=== PATIENT | female | born 1985 | race Caucasian/White ===

== ENCOUNTER 2016-12-23 13:22 | Emergency (ER) | END 2016-12-23 15:03 | disposition home or self-care (01) | DX: F15.10 Other stimulant abuse, uncomplicated (principal); F17.210 Nicotine dependence, cigarettes, uncomplicated | CPT/HCPCS: 82962; 93005; Z7502 ==

== ENCOUNTER 2017-06-10 14:45 | Emergency (ER) | payer OTHER ==
[~2017-06-10] VITALS: Ht 157.5 cm; Wt 74.0 kg
[~2017-06-10 14:45] MED LIST: ELIM TOP
[2017-06-10 14:48] VITALS: Ht 157.5 cm; Wt 74.0 kg
[2017-06-10] MEDS ORDERED: MECLIZINE 12.5 MG TAB PO ONE (15:00)
[2017-06-10] MEDS ORDERED: ONDANSETRON (ODT) 4 MG TAB ODT STA (15:00)
--- NOTE | 2017-06-10 15:05 | ERD ---
ER Documentation Chief Complaint Date/Time DATE: 06/10/17 TIME: 15:01 Chief Complaint dizziness x 3 days with nausea HPI Patient is a 31-year-old otherwise healthy female who states she has had dizziness for the past 3 days. She describes the dizziness as feeling like the room is spinning and she states it feels worse when she goes from sitting to standing or when she moves her head. She admits to nausea but no vomiting. Denies any fever. Denies any headache. Denies any visual changes. She has not tried any medications for this. Her last menstrual period was last month she states. She denies any chest pain or shortness of breath. ROS All systems reviewed and are negative except as per history of present illness. Medications Home Meds Active Scripts Ondansetron (Ondansetron Odt) 4 Mg Tab.rapdis, 4 MG PO Q6H Y for NAUSEA AND/OR VOMITING, #20 TAB Prov:ABRAHAM DOSHI PA-C 06/10/17 Meclizine Hcl* (Meclizine Hcl*) 25 Mg Tablet, 25 MG PO Q8H Y for DIZZINESS, #30 TAB Prov:ABRAHAM DOSHI PA-C 06/10/17 Permethrin* (Elimite*) 5% Cr, 1 APPLIC TOP ONCE, #60 TUB Prov:ABRAHAM DOSHI PA-C 08/15/15 Allergies Allergies: Coded Allergies: No Known Allergy (Unverified , 06/07/15) PMhx/Soc History of Surgery: No Anesthesia Reaction: No Hx Neurological Disorder: No Hx Respiratory Disorders: No Hx Cardiac Disorders: No Hx Psychiatric Problems: No Hx Miscellaneous Medical Probl: No Hx Alcohol Use: Yes (OCCASIONALLY) Hx Substance Use: No (MARIJUANA) Hx Tobacco Use: Yes FmHx Family History: No diabetes Physical Exam Vitals Vital Signs Date Time Temp Pulse Resp B/P Pulse Ox O2 Delivery O2 Flow Rate FiO2 06/10/17 14:48 97.9 85 18 117/72 98 Physical Exam General: well developed, well nourished, alert, nontoxic, no distress Head: normocephalic, atraumatic Eyes: PERRL, normal conjunctiva Neck: Supple, nontender, no lymphadenopathy, no midline tenderness Respiratory: Clear to auscaultation bilaterally, speaks in full sentences, no use of accesory muscles or labored breathing, no rales, ronchi, or wheezing Cardiovascular: RRR, No murmurs GI: soft, non tender, non distended, negative murphys sign, negative mcburneys point tenderness, no cva tenderness bilaterally, no rebound or guarding Neuro: CN 2-12 intact, normal speech, sales exhibitor strength 5/5 bilaterally, rapid alternating movements wnl, romberg and pronator drift wnl Results 24 hrs Laboratory Tests Test 06/10/17 15:05 Bedside Glucose 94mg/dL Current Medications Medications (Trade) Dose Ordered Sig/Bartolo Route PRN Reason Start Time Stop Time Status Last Admin Dose Admin Meclizine HCl (Antivert) 25 mg ONCE ONCE PO 06/10/17 15:00 06/10/17 15:01 DC 06/10/17 15:05 Ondansetron HCl (Zofran Odt) 4 mg ONCE STAT ODT 06/10/17 15:00 06/10/17 15:01 DC 06/10/17 15:05 Procedures/MDM This is a 31-year-old female who has had dizziness for the past 3 days. She is otherwise healthy without any medical problems. She is well-appearing in no distress and her neurological examination is normal. She has no chest pain or shortness of breath. She has no headache. Her symptoms are described as feeling like the room is spinning and worse when she changes positions of her head. This is most likely benign positional vertigo however I did do an Accu- Chek and a urine test. Accu-Chek was within normal limits and her test is negative. She was given Zofran and meclizine here in the emergency room and discharged with prescriptions for both as well. Recommended this patient follow up with her primary care doctor within 48 hours or return to the emergency room for any worsening of symptoms. However this time I do believe there is suitable for outpatient management. I answered all their questions and they agreed with the plan and were discharged home. Departure Diagnosis: Primary Impression: Benign positional vertigo Condition: Stable ABRAHAM DOSHI PA-C Jun 10, 2017 15:04
[2017-06-10] MEDS ORDERED: ONDA4TAB14 PO (15:06)
[2017-06-10] MEDS ORDERED: MECL-77 PO (15:06)
[2017-06-10 16:57] VITALS: BP 121/78; PULSE 61; RESP 20; TEMP 98
== END 2017-06-10 16:58 | disposition home or self-care (01) ==
LOC: MERGE 14:45 → FTE 14:45
DX: H81.10 Benign paroxysmal vertigo, unspecified ear (principal); R11.0 Nausea; Z87.891 Personal history of nicotine dependence
CPT/HCPCS: 82962; Z7502; Z7610; 99283

== ENCOUNTER 2017-07-15 22:52 | Emergency (ER) | END 2017-07-15 23:17 | disposition left against medical advice (07) | DX: Z53.21 Procedure and treatment not carried out due to patient leaving prior to being seen by health care provider (principal) ==

== ENCOUNTER 2017-08-21 12:47 | Emergency (ER) | payer OTHER ==
[~2017-08-21] VITALS: Wt 78.0 kg
[~2017-08-21 12:47] MED LIST changes: +MECL-77 PO; +ONDA4TAB14 PO
[2017-08-21] MEDS ORDERED: LIDOCAINE 1% (MDV) 20 ML INJ SC ONE (14:00)
[2017-08-21] MEDS ORDERED: CEPH-443 PO (14:19)
[2017-08-21] MEDS ORDERED: SULF1TAB31 PO (14:19)
[2017-08-21] MEDS ORDERED: IBUP-1542 PO (14:19)
--- NOTE | 2017-08-21 14:46 | ERD ---
ER Documentation Chief Complaint Date/Time DATE: 08/21/17 TIME: 14:45 Chief Complaint UPPER LEFT ARM ABSCESS HPI 31-year-old female comes in with left axillary abscess that started approximately 5 days ago. She describes localized pain that is sharp, achy. She denies fevers or chills. ROS All systems reviewed and are negative except as per history of present illness. Medications Home Meds Active Scripts Ibuprofen* (Motrin*) 600 Mg Tab, 600 MG PO Q6, #30 TAB Prov:BOBBY GARZA PA-C 08/21/17 Sulfamethoxazole/Trimethoprim* (Bactrim Ds* Tablet) 1 Each Tablet, 1 TAB PO BID , #10 TAB Prov:BOBBY GARZA PA-C 08/21/17 Cephalexin* (Keflex*) 500 Mg Capsule, 500 MG PO QID for 5 Days, CAP Prov:BOBBY GARZA PA-C 08/21/17 Ondansetron (Ondansetron Odt) 4 Mg Tab.rapdis, 4 MG PO Q6H Y for NAUSEA AND/OR VOMITING, #20 TAB Prov:ABRAHAM DOSHI PA-C 06/10/17 Meclizine Hcl* (Meclizine Hcl*) 25 Mg Tablet, 25 MG PO Q8H Y for DIZZINESS, #30 TAB Prov:ABRAHAM DOSHI PA-C 06/10/17 Permethrin* (Elimite*) 5% Cr, 1 APPLIC TOP ONCE, #60 TUB Prov:ABRAHAM DOSHI PA-C 08/15/15 Allergies Allergies: Coded Allergies: No Known Allergy (Unverified , 12/23/16) PMhx/Soc Medical and Surgical Hx: pt denies Medical Hx, pt denies Surgical Hx History of Surgery: No Anesthesia Reaction: No Hx Neurological Disorder: No Hx Respiratory Disorders: No Hx Cardiac Disorders: No Hx Psychiatric Problems: No Hx Miscellaneous Medical Probl: No Hx Alcohol Use: Yes (OCCASIONALLY) Hx Substance Use: No (MARIJUANA) Hx Tobacco Use: Yes Smoking Status: Current every day smoker Physical Exam Vitals Vital Signs Date Time Temp Pulse Resp B/P Pulse Ox O2 Delivery O2 Flow Rate FiO2 08/21/17 12:53 98.0 78 18 126/71 99 Physical Exam General: Well-developed, well-nourished. The patient appears in no acute distress. HEENT: Head is normocephalic, atraumatic. No scleral icterus. Neck: Supple. Nontender. Lungs: Clear to auscultation. Normal air movement. Heart: Regular rate and rhythm. S1 and S2 are normal. No murmurs, gallops, or rubs. Abdomen: Nondistended. Extremities: No clubbing or cyanosis. Moving extremities x 4. No weakness. Neurologic: Alert and oriented 3. No focal deficits. Normal speech and gait. Skin: 2 cm area of fluctuance in the left axilla, there is fluctuance. No lymphatic Streaking. Results 24 hrs Current Medications Medications (Trade) Dose Ordered Sig/Bartolo Route PRN Reason Start Time Stop Time Status Last Admin Dose Admin Lidocaine (Xylocaine 1% (Mdv) 20 ml) 20 ml ONCE ONCE SC 08/21/17 14:00 08/21/17 14:01 DC Procedures/MDM Abscess Incision and Drainage with irrigation by me: Patient was verbally consented Location: left axilla Anesthesia: Local 1% Lidocaine Technique: Irrigated. Disrupted loculations w/ instrumentation Packing: None Complications: Neurovascularly intact post procedure 48 hour wound check. Scar minimization instructions given. Patient's skin symptoms have stabilized while they have been evaluated in the department and are appropriate for outpatient care and work up. Exam and w/u not consistent w/ sepsis, deep space infection, or foreign body. Departure Diagnosis: Primary Impression: Encounter for incision and drainage procedure Additional Impression: Abscess Condition: Good Patient Instructions: Abscess, Incision And Drainage BOBBY GARZA PA-C Aug 21, 2017 14:46
== END 2017-08-21 14:27 | disposition home or self-care (01) ==
LOC: FTE 12:47
DX: L02.412 Cutaneous abscess of left axilla (principal); F17.210 Nicotine dependence, cigarettes, uncomplicated
CPT/HCPCS: 10060; Z7502; Z7610

== ENCOUNTER 2017-08-27 19:00 | Emergency (ER) | payer SELFPAY ==
[~2017-08-27] VITALS: Ht 157.5 cm; Wt 61.5 kg
[~2017-08-27 19:00] MED LIST changes: +CEPH-443 PO; +IBUP-1542 PO; +SULF1TAB31 PO
[2017-08-27 19:08] VITALS: Ht 157.5 cm; Wt 61.5 kg
== END 2017-08-27 22:29 | disposition left against medical advice (07) ==
LOC: E/R 19:00
DX: Z53.21 Procedure and treatment not carried out due to patient leaving prior to being seen by health care provider (principal)

== ENCOUNTER 2017-08-30 04:14 | Emergency (ER) | payer OTHER ==
[~2017-08-30] VITALS: Ht 160 cm; Wt 60.5 kg
[2017-08-30 04:22] VITALS: Ht 160 cm; Wt 60.5 kg
[2017-08-30] MEDS ORDERED: FER325 PO (04:45)
--- NOTE | 2017-08-30 04:48 | ERD ---
ER Documentation Chief Complaint Date/Time DATE: 08/30/17 TIME: 04:47 Chief Complaint Wants refill of iron pills. HPI 31-year-old female presents here to emergency department for refill of her iron pills. Patient has been diagnosed with chronic anemia, run out of her medication the last 2 days. Patient denies bleeding symptoms at this time. Patient denies any complaints. Patient wants resources for community clinics and will be given to her. Patient denies any other symptoms. ROS All systems reviewed and are negative except as per history of present illness. Medications Home Meds Active Scripts Ferrous Sulfate* (Ferrous Sulfate*) 325 Mg Tabec, 325 MG PO BID, #20 TAB Prov:DERRELL LARKIN NP 08/30/17 Ibuprofen* (Motrin*) 600 Mg Tab, 600 MG PO Q6, #30 TAB Prov:BOBBY GARZA PA-C 08/21/17 Sulfamethoxazole/Trimethoprim* (Bactrim Ds* Tablet) 1 Each Tablet, 1 TAB PO BID , #10 TAB Prov:BOBBY GARZA PA-C 08/21/17 Cephalexin* (Keflex*) 500 Mg Capsule, 500 MG PO QID for 5 Days, CAP Prov:BOBBY GARZA PA-C 08/21/17 Ondansetron (Ondansetron Odt) 4 Mg Tab.rapdis, 4 MG PO Q6H Y for NAUSEA AND/OR VOMITING, #20 TAB Prov:ABRAHAM DOSHI PA-C 06/10/17 Meclizine Hcl* (Meclizine Hcl*) 25 Mg Tablet, 25 MG PO Q8H Y for DIZZINESS, #30 TAB Prov:ABRAHAM DOSHI PA-C 06/10/17 Permethrin* (Elimite*) 5% Cr, 1 APPLIC TOP ONCE, #60 TUB Prov:ABRAHAM DOSHI PA-C 08/15/15 Allergies Allergies: Coded Allergies: No Known Allergy (Unverified , 12/23/16) PMhx/Soc History of Surgery: No Anesthesia Reaction: No Hx Neurological Disorder: No Hx Respiratory Disorders: No Hx Cardiac Disorders: No Hx Psychiatric Problems: No Hx Miscellaneous Medical Probl: No Hx Alcohol Use: Yes (OCCASIONALLY) Hx Substance Use: No (MARIJUANA) Hx Tobacco Use: Yes FmHx Family History: No coronary disease, No diabetes, No other Physical Exam Vitals Vital Signs Date Time Temp Pulse Resp B/P Pulse Ox O2 Delivery O2 Flow Rate FiO2 08/30/17 04:22 97.2 97 20 137/90 100 Physical Exam GENERAL: The patient is well developed and appropriate for usual state of health, in no apparent distress. CHEST: Clear to auscultation bilaterally. There are no rales, wheezes or rhonchi. HEART: Regular rate and rhythm. No murmurs, clicks, rubs or gallops. No S3 or S4. ABDOMEN: Soft, nontender and nondistended. Good bowel sounds. No rebound or guarding. No gross peritonitis. No gross organomegaly or masses. No Evans sign or McBurney point tenderness. BACK: No midline or flank tenderness. EXTREMITIES: Equal pulses bilaterally. There is no peripheral clubbing, cyanosis or edema. No focal swelling or erythema. Full range of motion. Grossly neurovascularly intact. NEURO: Alert and oriented. Cranial nerves 2-12 intact. Motor strength in all 4 extremities with 5/5 strength. Sensation grossly intact. Normal speech and gait. SKIN: There is no apparent rash or petechia. The skin is warm and dry. HEMATOLOGIC AND LYMPHATIC: There is no evidence of excessive bruising or lymphedema. No gross cervical, axillary, or inguinal lymphadenopathy. Procedures/MDM Medical decision making: Patient was given a refill of her iron pills. No symptoms of any hemodynamic instability at this time, patient's vital signs are stable, not currently bleeding, no symptoms of any coagulability. Patient was given a refill of her iron pills, was given resources for [facility] for establishing primary care. Patient was advised to return to emergency department for any worsening symptoms. Disposition: Home. Stable. Departure Diagnosis: Primary Impression: Encounter for medication refill Condition: Stable Patient Instructions: Taking Medicine Safely Referrals: COMMUNITY CLINICS YOU HAVE RECEIVED A MEDICAL SCREENING EXAM AND THE RESULTS INDICATE THAT YOU DO NOT HAVE A CONDITION THAT REQUIRES URGENT TREATMENT IN THE EMERGENCY DEPARTMENT. FURTHER EVALUATION AND TREATMENT OF YOUR CONDITION CAN WAIT UNTIL YOU ARE SEEN IN YOUR DOCTORS OFFICE WITHIN THE NEXT 1-2 DAYS. IT IS YOUR RESPONSIBILITY TO MAKE AN APPOINTMENT FOR FOLOW-UP CARE. IF YOU HAVE A PRIMARY DOCTOR --you should call your primary doctor and schedule an appointment IF YOU DO NOT HAVE A PRIMARY DOCTOR YOU CAN CALL OUR PHYSICIAN REFERRAL HOTLINE AT IF YOU CAN NOT AFFORD TO SEE A PHYSICIAN YOU CAN CHOSE FROM THE FOLLOWING [facility] CLINICS [facility] [address] [place] [facility] [address] [place] [facility] [address] [facility] [address] [facility] [address] [facility]. [address] [facility]. [facility] YOU HAVE RECEIVED A MEDICAL SCREENING EXAM AND THE RESULTS INDICATE THAT YOU DO NOT HAVE A CONDITION THAT REQUIRES URGENT TREATMENT IN THE EMERGENCY DEPARTMENT. FURTHER EVALUATION AND TREATMENT OF YOUR CONDITION CAN WAIT UNTIL YOU ARE SEEN IN YOUR DOCTORS OFFICE WITHIN THE NEXT 1-2 DAYS. IT IS YOUR RESPONSIBILITY TO MAKE AN APPOINTMENT FOR FOLOW-UP CARE. IF YOU HAVE A PRIMARY DOCTOR --you should call your primary doctor and schedule and appointment IF YOU DO NOT HAVE A PRIMARY DOCTOR YOU CAN CALL OUR PHYSICIAN REFERRAL HOTLINE AT . IF YOU CAN NOT AFFORD TO SEE A PHYSICIAN YOU CAN CHOSE FROM THE FOLLOWING [facility] INSTITUTIONS: [facility] [address] [place] [address] [facility] [address] [place] [address] [facility] [address] [place] [address] [facility] DERRELL LARKIN NP Aug 30, 2017 04:48
== END 2017-08-30 05:05 | disposition home or self-care (01) ==
LOC: FTE 04:14
DX: Z76.0 Encounter for issue of repeat prescription (principal); Z87.891 Personal history of nicotine dependence
CPT/HCPCS: 99281

== ENCOUNTER 2017-11-15 10:49 | Emergency (ER) | payer OTHER ==
[~2017-11-15] VITALS: Ht 157.5 cm; Wt 60.1 kg
[~2017-11-15 10:49] MED LIST changes: +FER325 PO
[2017-11-15 10:55] VITALS: Ht 157.5 cm; Wt 60.1 kg
[2017-11-15] MEDS ORDERED: FLUT9.9S NASAL (12:18)
--- NOTE | 2017-11-15 15:03 | ERD ---
ER Documentation Chief Complaint Chief Complaint ringing in both ears, recent d/c from psych facility, denies si/hi HPI 31-year-old female is complaining of tinnitus in bilateral ears 1.5 months. Patient stated that he had a gradual onset. The intensity the tinnitus has increased gradually over time. She now can no longer ignore it. Patient reports history of depression. She was just released from psychiatric hospital a week ago. She reports hearing voices, but the voices are telling her good things. Denies suicidal or homicidal ideations. She has a follow-up appointment with either her PCP or psychiatrist tomorrow. Patient does not remember which. Patient also has history of vertigo, taking meclizine occasionally. Patient reports frequent and regular crystal meth and marijuana use. Denies fever or chills. Denies vertigo currently. ROS All systems reviewed and are negative except as per history of present illness. Medications Home Meds Active Scripts Fluticasone Propionate (Flonase Allergy Relief) 9.9 Ml [place].susp, 1 SPRAY NASAL DAILY, #1 BOTTLE TO EACH NOSTRIL Prov:JOSE JUAN BANERJEE COTTON TIPPER 11/15/17 Ferrous Sulfate* (Ferrous Sulfate*) 325 Mg Tabec, 325 MG PO BID, #20 TAB Prov:DERRELL LARKIN COTTON TIPPER 08/30/17 Ibuprofen* (Motrin*) 600 Mg Tab, 600 MG PO Q6, #30 TAB Prov:BOBBY GARZA PA-C 08/21/17 Sulfamethoxazole/Trimethoprim* (Bactrim Ds* Tablet) 1 Each Tablet, 1 TAB PO BID , #10 TAB Prov:BOBBY GARZA PA-C 08/21/17 Cephalexin* (Keflex*) 500 Mg Capsule, 500 MG PO QID for 5 Days, CAP Prov:BOBBY GARZA PA-C 08/21/17 Ondansetron (Ondansetron Odt) 4 Mg Tab.rapdis, 4 MG PO Q6H Y for NAUSEA AND/OR VOMITING, #20 TAB Prov:ABRAHAM DOSHI PA-C 06/10/17 Meclizine Hcl* (Meclizine Hcl*) 25 Mg Tablet, 25 MG PO Q8H Y for DIZZINESS, #30 TAB Prov:ABRAHAM DOSHI PA-C 06/10/17 Permethrin* (Elimite*) 5% Cr, 1 APPLIC TOP ONCE, #60 TUB Prov:ABRAHAM DOSHI KADEN 08/15/15 Allergies Allergies: Coded Allergies: No Known Allergy (Unverified , 12/23/16) PMhx/Soc History of Surgery: No Anesthesia Reaction: No Hx Neurological Disorder: No Hx Respiratory Disorders: No Hx Cardiac Disorders: No Hx Psychiatric Problems: No Hx Miscellaneous Medical Probl: Yes (Anemia) Hx Alcohol Use: Yes (OCCASIONALLY) Hx Substance Use: Yes (MARIJUANA, meth qod) Hx Tobacco Use: Yes Smoking Status: Current every day smoker Physical Exam Vitals Vital Signs Date Time Temp Pulse Resp B/P Pulse Ox O2 Delivery O2 Flow Rate FiO2 11/15/17 10:55 97.9 122 18 140/106 97 Physical Exam General: Well-developed, well-nourished, conscious and coherent, in no distress Skin: Warm and dry without rash, good texture and turgor Head: Normocephalic without evidence of trauma Eyes: Sclera and conjunctivae normal; pupils equal, round, and reactive to light; extraocular movements are intact Ears: Canals are patent. Tympanic membranes are clear. Serous effusion noted behind left TM. Nose/Face: Boggy and swollen Mouth/throat: Mucous membranes are moist. Posterior pharynx clear without erythema or exudates Neck: Supple without meningismus or adenopathy. Carotids are equal. Trachea midline. No bruits or JVD Chest: Normal AP diameter. Good expansion without retractions. Nontender. Lungs are clear to auscultate bilaterally with good tidal volume Heart: Regular rate and rhythm. No murmur, rub, or gallops heard Extremities: Full range of motion. Good strength bilaterally. No clubbing, cyanosis, or edema. Peripheral pulses are intact. Sensation intact Neuro: Alert and oriented 4, GCS 15. Cranial nerves grossly intact. Motor and sensory exams nonfocal. Moves all extremities. Speech clear. Gait normal Psych: Flight of ideas, pressured speech. Normal mood. Avoid eye contact. Procedures/MDM 31-year-old female complaining of tinnitus. Patient noted to have serous otitis media on exam, likely secondary to allergic rhinitis. The serous otitis media may be causing her tinnitus. However, given patient's history of vertigo , Mnire's disease is also a possibility, as is hearing loss. Patient has history of depression, and auditory hallucination. She denies any suicidal homicidal ideations. I do not feel psychiatric hold is indicated. She has a follow-up appointment with either her PCP or psychiatrist tomorrow. Patient appears well, stable for discharge and outpatient management. Medical decision making shared with patient and family. Education provided to patient and family. Patient and family expressed understanding of the plan. Medications on discharge: Saline nasal spray, Flonase. Follow-up: Primary care provider in 2-3 days or return to ED if worse. Disclaimer: Inadvertent spelling and grammatical errors are likely due to EHR/ dictation software use and do not reflect on the overall quality of patient care. Also, please note that the electronic time recorded on this note does not necessarily reflect the actual time of the patient encounter. Departure Diagnosis: Primary Impression: Tinnitus Additional Impressions: Multiple substance abuse Acute allergic serous otitis media Allergic rhinitis Condition: Stable Patient Instructions: Understanding Methamphetamine Abuse and Addiction, Tinnitus (Ringing in the Ears), Allergic Rhinitis Additional Instructions: FOLLOW UP WITH YOUR PRIMARY CARE PHYSICIAN TOMORROW.Return to this facility if you are not improving as expected. JOSE JUAN BANERJEE NP Nov 15, 2017 15:03
== END 2017-11-15 13:34 | disposition home or self-care (01) ==
LOC: FTE 10:49
DX: H93.13 Tinnitus, bilateral (principal); H65.112 Acute and subacute allergic otitis media (mucoid) (sanguinous) (serous), left ear; J30.9 Allergic rhinitis, unspecified; F12.10 Cannabis abuse, uncomplicated; F15.10 Other stimulant abuse, uncomplicated; F17.210 Nicotine dependence, cigarettes, uncomplicated
CPT/HCPCS: 99283

== ENCOUNTER 2017-11-26 08:22 | Emergency (ER) | payer OTHER ==
[~2017-11-26] VITALS: Ht 165.1 cm; Wt 59.1 kg
[~2017-11-26 08:22] MED LIST changes: +FLUT9.9S NASAL
[2017-11-26 08:32] VITALS: Ht 165.1 cm; Wt 59.1 kg
--- NOTE | 2017-11-26 08:51 | ERD ---
ER Documentation Chief Complaint Chief Complaint FLU LIKE SX W/ FATIGUE SINCE YESTERDAY. HPI This is a 31-year-old female presenting to the emergency department complaining of fatigue and as of her chest is concave being in since yesterday that she did crystal meth. Patient is very drowsy since yesterday. She denies any fevers, shortness of breath, headache, radiation and pain. She does admit to other drug use including cannabis ROS All systems reviewed and are negative except as per history of present illness. Medications Home Meds Active Scripts Fluticasone Propionate (Flonase Allergy Relief) 9.9 Ml [place].susp, 1 SPRAY NASAL DAILY, #1 BOTTLE TO EACH NOSTRIL Prov:JOSE JUAN BANERJEE HOME AGENT 11/15/17 Ferrous Sulfate* (Ferrous Sulfate*) 325 Mg Tabec, 325 MG PO BID, #20 TAB Prov:DERRELL LARKIN HOME AGENT 08/30/17 Ibuprofen* (Motrin*) 600 Mg Tab, 600 MG PO Q6, #30 TAB Prov:BOBBY GARZA PA-C 08/21/17 Sulfamethoxazole/Trimethoprim* (Bactrim Ds* Tablet) 1 Each Tablet, 1 TAB PO BID , #10 TAB Prov:BOBBY GARZA PA-C 08/21/17 Cephalexin* (Keflex*) 500 Mg Capsule, 500 MG PO QID for 5 Days, CAP Prov:BOBBY GARZA PA-C 08/21/17 Ondansetron (Ondansetron Odt) 4 Mg Tab.rapdis, 4 MG PO Q6H Y for NAUSEA AND/OR VOMITING, #20 TAB Prov:ABRAHAM DOSHI PA-C 06/10/17 Meclizine Hcl* (Meclizine Hcl*) 25 Mg Tablet, 25 MG PO Q8H Y for DIZZINESS, #30 TAB Prov:ABRAHAM DOSHI PA-C 06/10/17 Permethrin* (Elimite*) 5% Cr, 1 APPLIC TOP ONCE, #60 TUB Prov:ABRAHAM DOSHI PA-C 08/15/15 Allergies Allergies: Coded Allergies: No Known Allergy (Unverified , 12/23/16) PMhx/Soc History of Surgery: No Anesthesia Reaction: No Hx Neurological Disorder: No Hx Respiratory Disorders: No Hx Cardiac Disorders: No Hx Psychiatric Problems: No Hx Miscellaneous Medical Probl: Yes (Anemia) Hx Alcohol Use: Yes (OCCASIONALLY) Hx Substance Use: Yes (MARIJUANA, meth qod) Hx Tobacco Use: Yes Physical Exam Vitals Vital Signs Date Time Temp Pulse Resp B/P Pulse Ox O2 Delivery O2 Flow Rate FiO2 11/26/17 10:29 97.1 84 16 102/65 100 Room Air 11/26/17 08:32 98.4 80 16 104/66 100 Physical Exam Const: Well-developed well-nourished. Patient is sleepy Head: Atraumatic Eyes: Normal Conjunctiva ENT: Normal External Ears, Nose and Mouth. Neck: Full range of motion..~ No meningismus. Resp: Clear to auscultation bilaterally Cardio: Regular rate and rhythm, no murmurs Abd: Soft, non tender, non distended. Normal bowel sounds Skin: No petechiae or rashes Back: No midline or flank tenderness Ext: No cyanosis, or edema Neur: Arousable Psych: f drowsy Results 24 hrs Laboratory Tests Test 11/26/17 09:15 Troponin I < 0.012ng/ml Procedures/MDM This is a 31-year-old female presenting to the emergency department complaining of fatigue and chest discomfort status post doing crystal meth yesterday. I have a low suspicion for ACS other acute cardiopulmonary conditions. Patient's symptoms are contributed to doing crystal meth yesterday. She did not show STEMI. Chest x-ray did not show any infiltrates pneumothorax pleural effusion. Troponin negative. Patient appeared to still be drowsy at discharge, likely due to crashing from meth, therefore she was sent to ER 1 for observation until stable to be discharged home. Drug tox pending EKG: read and signed off by myself and dr Deshpande Rate/Rhythm: Normal Sinus Rhythm 71bpm QRS, ST, T-waves: No changes consistent w/ acute ischemia Impression: No evidence of ischemia or arrhythmia Departure Diagnosis: Primary Impression: Drug use Additional Impression: Chest pain Condition: Stable ISABELA DALEY PA-C Nov 26, 2017 08:51 ISABELA DALEY PA-C Nov 26, 2017 08:51
--- NOTE | 2017-11-26 09:36 | RADRPT ---
PROCEDURE: XR Chest. CLINICAL INDICATION: Flu-like symptoms TECHNIQUE: Single portable view of the chest was obtained COMPARISON: No priors for comparison FINDINGS: The trachea is midline. The cardiac silhouette and pulmonary vascularity are within normal limits. T he lungs are clear. The costophrenic angles are sharp. IMPRESSION: 1. No evidence of acute cardiopulmonary disease. RPTAT: AAPP Physician Eduin Date Time Electronically viewed and signed by Nishant Cedeno Physician on 11/26/2017 09:36 ZEESHAN/
[2017-11-26 11:21] LABS: BASOPHILS % 0.5 % (0.0-2.0); EOSINOPHILS # 0.1 10^3/ul (0.0-0.5); EOSINOPHILS % 0.7 % (0.0-7.0); HEMATOCRIT 37.7 % (37.0-47.0); LYMPHOCYTES # 1.2 10^3/ul (0.8-2.9); LYMPHOCYTES % 14.1 % (15.0-51.0); MEAN CORPUSCULAR HGB CONC 34.5 g/dl (32.0-37.0); MEAN PLATELET VOLUME 9.6 fl (7.4-10.4); MONOCYTE # 0.5 10^3/ul (0.3-0.9); MONOCYTES % 5.7 % (0.0-11.0); NEUTROPHIL # 6.6 10^3/ul (1.6-7.5); NEUTROPHILS % 78.4 % (39.0-77.0); PLATELET COUNT 338 10^3/UL (140-415); RED BLOOD COUNT 4.19 10^6/ul (4.20-5.40); RED CELL DISTRIBUTION WIDTH 13.4 % (11.5-14.5); WHITE BLOOD COUNT 8.4 10^3/ul (4.8-10.8)
[2017-11-26 11:43] LABS: ALANINE AMINOTRANSFERASE 32 IU/L (13-69); ALBUMIN 4.5 g/dl (3.3-4.9); ALKALINE PHOSPHATASE 79 IU/L (42-121); ANION GAP 13 (8-16); ASPARTATE AMINO TRANSFERASE 20 IU/L (15-46); BILIRUBIN,INDIRECT 0.5 mg/dl (0-1.1); BILIRUBIN,TOTAL 0.5 mg/dl (0.2-1.3); BLOOD UREA NITROGEN 21 mg/dl (7-20); CALCIUM 9.4 mg/dl (8.4-10.2); CARBON DIOXIDE 26 mmol/L (21-31); CHLORIDE 102 mmol/L (97-110); CREATININE 0.78 mg/dl (0.44-1.00); GLUCOSE 100 mg/dl (70-220); POTASSIUM 4.1 mmol/L (3.5-5.1); SODIUM 137 mmol/L (135-144); TOTAL PROTEIN 7.7 g/dl (6.1-8.1)
[2017-11-26 11:45] LABS: ACETAMINOPHEN < 10.0 ug/ml (10.0-30.0)
[2017-11-26 11:46] LABS: ETHANOL < 10.0 mg/dl; SALICYLATE < 1.0 mg/dl (5.0-30.0)
--- NOTE | 2017-11-26 11:52 | ERD ---
ER Documentation Chief Complaint Chief Complaint FLU LIKE SX W/ FATIGUE SINCE YESTERDAY. HPI This is a 31-year-old female who presents to the emergency room for evaluation of anxiety and fatigue. The patient states that she did use methamphetamine last night. She states that she felt a lynn and got nervous. The patient came to the ER for evaluation and was originally seen in fast track area and was transferred reported to the main emergency room for further evaluation. She denies homicidal ideation, denies any suicidal ideation. ROS All systems reviewed and are negative except as per history of present illness. Medications Home Meds Active Scripts Fluticasone Propionate (Flonase Allergy Relief) 9.9 Ml [place].susp, 1 SPRAY NASAL DAILY, #1 BOTTLE TO EACH NOSTRIL Prov:JOSE JUAN BANERJEE REED PRESS FEEDER 11/15/17 Ferrous Sulfate* (Ferrous Sulfate*) 325 Mg Tabec, 325 MG PO BID, #20 TAB Prov:DERRELL LARKIN REED PRESS FEEDER 08/30/17 Ibuprofen* (Motrin*) 600 Mg Tab, 600 MG PO Q6, #30 TAB Prov:BOBBY GARZA PA-C 08/21/17 Sulfamethoxazole/Trimethoprim* (Bactrim Ds* Tablet) 1 Each Tablet, 1 TAB PO BID , #10 TAB Prov:BOBBY GARZA PA-C 08/21/17 Cephalexin* (Keflex*) 500 Mg Capsule, 500 MG PO QID for 5 Days, CAP Prov:BOBBY GARZA PA-C 08/21/17 Ondansetron (Ondansetron Odt) 4 Mg Tab.rapdis, 4 MG PO Q6H Y for NAUSEA AND/OR VOMITING, #20 TAB Prov:ABRAHAM DOSHI PA-C 06/10/17 Meclizine Hcl* (Meclizine Hcl*) 25 Mg Tablet, 25 MG PO Q8H Y for DIZZINESS, #30 TAB Prov:ABRAHAM DOSHI PA-C 06/10/17 Permethrin* (Elimite*) 5% Cr, 1 APPLIC TOP ONCE, #60 TUB Prov:ABRAHAM DOSHI PA-C 08/15/15 Allergies Allergies: Coded Allergies: No Known Allergy (Unverified , 12/23/16) PMhx/Soc History of Surgery: No Anesthesia Reaction: No Hx Neurological Disorder: No Hx Respiratory Disorders: No Hx Cardiac Disorders: No Hx Psychiatric Problems: No Hx Miscellaneous Medical Probl: Yes (Anemia, DEPRESSION) Hx Alcohol Use: Yes (OCCASIONALLY) Hx Substance Use: Yes (MARIJUANA, meth ) Hx Tobacco Use: Yes Smoking Status: Light tobacco smoker Physical Exam Vitals Vital Signs Date Time Temp Pulse Resp B/P Pulse Ox O2 Delivery O2 Flow Rate FiO2 11/26/17 10:29 97.1 84 16 102/65 100 Room Air 11/26/17 08:32 98.4 80 16 104/66 100 Physical Exam INITIAL VITAL SIGNS: Reviewed by me GENERAL: The patient is well developed and appropriate for usual state of health in no apparent distress HEENT: Dry mucous membranes, pupils equal, round, and reactive to light. EOMI. There is no scleral icterus. NECK: C-spine is soft and supple, there is no meningismus. There is no cervical lymphadenopathy. LUNGS: Clear to auscultation bilaterally. There are no rales, wheezes or rhonchi. HEART: Regular rate and rhythm, no murmurs, clicks, rubs or gallops. ABDOMEN: Soft, non-tender, non-distended. There are bowel sounds in all four quadrants. No rebound or guarding. EXTREMITIES: There is no peripheral cyanosis or edema. No focal swelling or erythema. NEUROLOGICAL: The patient moves all four extremities with 5/5 strength. Cranial nerves II - XII are intact. Normal gait. Alert and oriented SKIN: There is no apparent rash or petechiae. HEME/LYMPHATIC: There is no evidence of excessive bruising or lymphedema. PSYCHIATRIC: The patient does do to be slightly anxious Result Diagram: 11/26/17 1100 11/26/17 1100 Results 24 hrs Laboratory Tests Test 11/26/17 09:15 11/26/17 11:00 Troponin I < 0.012ng/ml White Blood Count 8.410^3/ul Red Blood Count 4.1910^6/ul Hemoglobin 13.0g/dl Hematocrit 37.7% Mean Corpuscular Volume 90.0fl Mean Corpuscular Hemoglobin 31.0pg Mean Corpuscular Hemoglobin Concent 34.5g/dl Red Cell Distribution Width 13.4% Platelet Count 22733^3/UL Mean Platelet Volume 9.6fl Neutrophils % 78.4% Lymphocytes % 14.1% Monocytes % 5.7% Eosinophils % 0.7% Basophils % 0.5% Nucleated Red Blood Cells % 0.0/100WBC Neutrophils # 6.610^3/ul Lymphocytes # 1.210^3/ul Monocytes # 0.510^3/ul Eosinophils # 0.110^3/ul Basophils # 0.010^3/ul Nucleated Red Blood Cells # 0.010^3/ul Sodium Level 137mmol/L Potassium Level 4.1mmol/L Chloride Level 102mmol/L Carbon Dioxide Level 26mmol/L Anion Gap 13 Blood Urea Nitrogen 21mg/dl Creatinine 0.78mg/dl Glucose Level 100mg/dl Calcium Level 9.4mg/dl Total Bilirubin 0.5mg/dl Direct Bilirubin 0.00mg/dl Indirect Bilirubin 0.5mg/dl Aspartate Amino Transf (AST/SGOT) 20IU/L Alanine Aminotransferase (ALT/SGPT) 32IU/L Alkaline Phosphatase 79IU/L Total Protein 7.7g/dl Albumin 4.5g/dl Globulin 3.20g/dl Albumin/Globulin Ratio 1.40 Salicylates Level < 1.0mg/dl Acetaminophen Level < 10.0ug/ml Ethyl Alcohol Level < 10.0mg/dl Procedures/MDM This 31-year-old female presents to the ER for evaluation of agitation. The patient did use amphetamines last night. The patient was seen and evaluated in fast track originally was transported to the main ER for further evaluation. On my examination the patient was hemodynamically stable and nontoxic appearing. She did appear to be slightly anxious and did have dry mucous membranes. Lab work was obtained which is within normal limits at this time. The patient is likely feeling the effects of amphetamine and she denies any homicidal ideation denies any suicidal ideation. She will be discharged home at this time with instructions to discontinue use of amphetamines Smoking Cessation Therapy: Pt. was lectured for greater than 3 minutes on the health risks of continued smoking and the benefits of cessation. Departure Diagnosis: Primary Impression: Drug use Additional Impressions: Chest pain Tobacco abuse Condition: Stable Patient Instructions: Chest Pain, Uncertain Cause, Drug Abuse Additional Instructions: FOLLOW UP WITH YOUR PRIMARY CARE PHYSICIAN TOMORROW.Return to this facility if you are not improving as expected. Return to this facility if you are not improving as expected. DEON INTERIANO DO Nov 26, 2017 11:52
[2017-11-26 12:01] VITALS: BP 100/63; PULSE 75; RESP 12; TEMP 97.9
== END 2017-11-26 13:39 | disposition home or self-care (01) ==
LOC: FTE 08:22 → E/R 13:39
DX: F15.10 Other stimulant abuse, uncomplicated (principal); R07.9 Chest pain, unspecified; F17.200 Nicotine dependence, unspecified, uncomplicated
CPT/HCPCS: 71010; 80053; 80306; 84484; 85025; 93005; Z7502

== ENCOUNTER 2018-01-15 15:15 | Emergency (ER) | END 2018-01-15 18:25 | disposition home or self-care (01) ==

== ENCOUNTER 2018-01-23 05:07 | Emergency (ER) | END 2018-01-23 06:58 | disposition home or self-care (01) ==

== ENCOUNTER 2018-05-11 23:22 | Emergency (ER) | END 2018-05-12 01:04 | disposition left against medical advice (07) ==

== ENCOUNTER 2018-06-30 17:45 | Emergency (ER) | END 2018-06-30 18:41 | disposition home or self-care (01) ==

== ENCOUNTER 2018-10-28 05:03 | Emergency (ER) | END 2018-10-28 06:07 | disposition home or self-care (01) ==

== ENCOUNTER 2019-03-08 01:04 | Emergency (ER) | payer SELFPAY ==
[~2019-03-08] VITALS: Ht 157.5 cm; Wt 60.6 kg
[~2019-03-08 01:04] MED LIST changes: +ALBU18HF INHALATION; +BEN25 PO; +CYCL10TA7 PO; +HC30CR25 TOP; +NAPR-985 PO; +PRED20TA PO
[2019-03-08 01:11] VITALS: BP 137/91; PULSE 97; RESP 20; Ht 157.5 cm; Wt 60.6 kg
== END 2019-03-08 02:40 | disposition left against medical advice (07) ==
LOC: FTE 01:04
DX: Z53.21 Procedure and treatment not carried out due to patient leaving prior to being seen by health care provider (principal)

== ENCOUNTER 2019-03-11 12:22 | Emergency (ER) | payer OTHER ==
[~2019-03-11] VITALS: Ht 160 cm; Wt 64.0 kg
[2019-03-11 12:40] VITALS: BP 153/86; PULSE 84; RESP 18; Ht 160 cm; Wt 64.0 kg
[2019-03-11] MEDS ORDERED: ACETAMINOPHEN 500 MG TAB PO STA (14:22)
[2019-03-11] MEDS ORDERED: DIPHENHYDRAMINE 25 MG CAP PO ONE (14:30)
[2019-03-11] MEDS ORDERED: HC30CR25 TOP (15:03)
[2019-03-11] MEDS ORDERED: BEN25 PO (15:03)
--- NOTE | 2019-03-11 15:06 | ERD ---
ER Documentation Chief Complaint Chief Complaint pt is bib self with c/o "rash" to face, near nose and head, HPI 33-year-old female presents with a rash on her cheeks in the back of her neck for the last day. She has an area on her chin as well. Patient was admitted started after brushing her hair using hair products. Patient has a history according to medical record of methamphetamine abuse. She denies any fevers, vomiting, chest pain, shortness of breath. ROS All systems reviewed and are negative except as per history of present illness. Medications Home Meds Active Scripts Hydrocortisone* Topical (Hydrocortisone* Topical) 2.5%-28.3 Gm Cream..g., 1 APPLIC TOP BID for 7 Days, #1 TUB Prov:MADELINE FRAZIER MD 03/11/19 Diphenhydramine Hcl* (Benadryl*) 25 Mg Cap, 25 MG PO Q6, #20 CAP Prov:MADELINE FRAZIER MD 03/11/19 Ibuprofen* (Motrin*) 600 Mg Tab, 600 MG PO Q6H PRN for PAIN AND OR ELEVATED TEMP, #30 TAB Prov:PLACIDO YOUSIF 10/28/18 Albuterol Sulfate* (Ventolin HFA*) 18 Gm Hfa.aer.ad, 2 PUFF INHALATION Q4H, #1 INHALER Prov:RAEGAN KRUEGER PA-C 08/05/18 Hydrocortisone* Topical (Hydrocortisone* Topical) 2.5%-28.3 Gm Cream..g., 1 APPLIC TOP BID, #1 TUB Prov:RAEGAN KRUEGER PA-C 08/05/18 Hydrocortisone* Topical (Hydrocortisone* Topical) 2.5%-28.3 Gm Cream..g., 1 APPLIC TOP BID, #1 TUB Prov:RAEGAN KRUEGER PA-C 06/30/18 Prednisone* (Prednisone*) 20 Mg Tab, 40 MG PO DAILY for 4 Days, TAB Prov:BOBBY GARZA PA-C 01/23/18 Diphenhydramine Hcl* (Benadryl*) 25 Mg Cap, 25 MG PO Q6, #30 CAP Prov:BOBBY GARZA PA-C 01/23/18 Albuterol Sulfate* (Ventolin HFA*) 18 Gm Hfa.aer.ad, 2 PUFF INHALATION Q4H, #1 INHALER Prov:RAEGAN KRUEGER PA-C 01/15/18 Naproxen* (Naprosyn*) 500 Mg Tablet, 500 MG PO BID PRN for PAIN AND/OR INFLAMMATION, #30 TAB Prov:RAEGAN KRUEGER PA-C 01/15/18 Cyclobenzaprine Hcl* (Cyclobenzaprine Hcl*) 10 Mg Tablet, 10 MG PO TID, #15 TAB Prov:RAEGAN KRUEGER PA-C 01/15/18 Fluticasone Propionate (Flonase Allergy Relief) 9.9 Ml [place].susp, 1 SPRAY NASAL DAILY, #1 BOTTLE TO EACH NOSTRIL Prov:JOSE JUAN BANERJEE DOCTOR OF OPTOMETRY 11/15/17 Ferrous Sulfate* (Ferrous Sulfate*) 325 Mg Tabec, 325 MG PO BID, #20 TAB Prov:DERRELL LARKIN DOCTOR OF OPTOMETRY 08/30/17 Ibuprofen* (Motrin*) 600 Mg Tab, 600 MG PO Q6, #30 TAB Prov:BOBBY GARZA PA-C 08/21/17 Sulfamethoxazole/Trimethoprim* (Bactrim Ds* Tablet) 1 Each Tablet, 1 TAB PO BID, #10 TAB Prov:BOBBY GARZA PA-C 08/21/17 Cephalexin* (Keflex*) 500 Mg Capsule, 500 MG PO QID for 5 Days, CAP Prov:BOBBY GARZA PA-C 08/21/17 Ondansetron (Ondansetron Odt) 4 Mg Tab.rapdis, 4 MG PO Q6H PRN for NAUSEA AND/OR VOMITING, #20 TAB Prov:ABRAHAM DOSHI PA-C 06/10/17 Meclizine Hcl* (Meclizine Hcl*) 25 Mg Tablet, 25 MG PO Q8H PRN for DIZZINESS, #30 TAB Prov:ABRAHAM DOSHI PA-C 06/10/17 Permethrin* (Elimite*) 5% Cr, 1 APPLIC TOP ONCE, #60 TUB Prov:ABRAHAM DOSHI PA-C 08/15/15 Allergies Allergies: Coded Allergies: No Known Allergy (Unverified , 12/23/16) PMhx/Soc Medical and Surgical Hx: pt denies Medical Hx, pt denies Surgical Hx History of Surgery: No Anesthesia Reaction: No Hx Neurological Disorder: No Hx Respiratory Disorders: No Hx Cardiac Disorders: No Hx Psychiatric Problems: No Hx Miscellaneous Medical Probl: No Hx Alcohol Use: No Hx Substance Use: No Hx Tobacco Use: No Smoking Status: Never smoker FmHx Family History: No diabetes, No coronary disease, No other Physical Exam Vitals Vital Signs Date Temp Pulse Resp B/P (MAP) Pulse Ox O2 O2 Flow FiO2 Time Delivery Rate 03/11/19 98.3 84 18 153/86 98 12:40 (108) Physical Exam Const: No acute distress Head: Atraumatic Eyes: Normal Conjunctiva ENT: Normal External Ears, Nose and Mouth. Blanching superficial excoriated rash on the forehead, nape of neck, and chin. There is no induration, streaking, vesicles. Neck: Full range of motion. No meningismus. Resp: Clear to auscultation bilaterally Cardio: Regular rate and rhythm, no murmurs Abd: Soft, non tender, non distended. Normal bowel sounds Skin: No petechiae or rashes Back: No midline or flank tenderness Ext: No cyanosis, or edema Neur: Awake and alert Psych: Normal Mood and Affect Results 24 hrs Current Medications Medications Dose Sig/Bartolo Start Time Status Last (Trade) Ordered Route PRN Stop Time Admin Dose Reason Admin 25 mg ONCE ONCE 03/11/19 DC 03/11/19 Diphenhydrami PO 14:30 14:41 ne HCl 03/11/19 14:31 (Benadryl) 500 mg ONCE STAT 03/11/19 DC 03/11/19 Acetaminophen PO 14:22 14:41 (Tylenol 03/11/19 14:23 Tab) Procedures/MDM Patient presents with nonspecific rash on her face over the last 1-2 days. May be a contact dermatitis or nonspecific rash. There is no signs of purpura, ce llulitis, anaphylaxis, life-threatening rashes. She will be treated empirically with Benadryl, hydrocortisone, primary care follow-up and return precautions. The patient was stable with no new complaints during the ER course. Clinically, there is no current evidence to suggest meningitis, sepsis, acute abdomen, pneumonia, stroke, acute coronary syndrome, pulmonary embolism, aortic dissection or any other emergent condition appearing to require further evaluation or hospitalization. Patient counseled regarding my diagnostic impression and care plan. Prior to discharge all questions answered. Pt agrees with treatment plan and understands strict return precautions. Pt is instructed to follow up with primary care provider within 24-48 hours. Precautionary in structions provided including instructions to return to the ER if not improving or for any worsening or changing symptoms or concerns. Departure Diagnosis: Primary Impression: Rash Patient Instructions: Dermatitis, Non-Specific Referrals: DOCTOR,NOT ON STAFF (PCP) Additional Instructions: Recheck for new or worsening symptoms with primary care doctor. MADELINE FRAZIER MD Mar 11, 2019 15:06
== END 2019-03-11 15:43 | disposition home or self-care (01) ==
LOC: FTE 12:22
DX: R21 Rash and other nonspecific skin eruption (principal)
CPT/HCPCS: Z7502; Z7610; 99282

== ENCOUNTER 2019-03-21 12:38 | Emergency (ER) | payer OTHER ==
[~2019-03-21] VITALS: Ht 160 cm; Wt 61.8 kg
[2019-03-21 13:38] VITALS: Ht 160 cm; Wt 61.8 kg
--- NOTE | 2019-03-21 15:17 | ERD ---
ER Documentation Chief Complaint Chief Complaint scalp pain, HPI 33-year-old female, presents to the emergency department, complaining of scalp erythema and irritation for 1 week. The patient has tried afxm-[id number]-[id number] medication without improvement of the symptoms. Otherwise, she denies headaches, no blurred vision, no nausea or vomiting, no other rashes. The patient has past medical history of asthma and is requesting a refill for his i nhaler. ROS All systems reviewed and are negative except as per history of present illness. Medications Home Meds Active Scripts Acetaminophen* (Tylenol*) 325 Mg Tablet, 2 TAB PO Q6 PRN for PAIN AND OR ELEVATED TEMP, #20 TAB Prov:JASSON RODGERS MD 03/21/19 Albuterol Sulfate* (Proair HFA*) 8.5 Gm Hfa.aer.ad, 2 PUFF INH Q4H PRN for WHEEZING AND SOB, #1 INHALER Prov:JASSON RODGERS MD 03/21/19 Triamcinolone Acetonide (Triamcinolone Acetonide) 0.1% - 60 Ml Lotion, 1 APPLIC TOP BID for 7 Days, #1 BOTTLE Prov:JASSON RODGERS MD 03/21/19 Hydrocortisone* Topical (Hydrocortisone* Topical) 2.5%-28.3 Gm Cream..g., 1 APPLIC TOP BID for 7 Days, #1 TUB Prov:MADELINE FRAZIER MD 03/11/19 Diphenhydramine Hcl* (Benadryl*) 25 Mg Cap, 25 MG PO Q6, #20 CAP Prov:MADELINE FRAZIER MD 03/11/19 Ibuprofen* (Motrin*) 600 Mg Tab, 600 MG PO Q6H PRN for PAIN AND OR ELEVATED TEMP, #30 TAB Prov:PLACIDO YOUSIF 10/28/18 Albuterol Sulfate* (Ventolin HFA*) 18 Gm Hfa.aer.ad, 2 PUFF INHALATION Q4H, #1 INHALER Prov:RAEGAN KRUEGER PA-C 08/05/18 Hydrocortisone* Topical (Hydrocortisone* Topical) 2.5%-28.3 Gm Cream..g., 1 APPLIC TOP BID, #1 TUB Prov:RAEGAN KRUEGER PA-C 08/05/18 Hydrocortisone* Topical (Hydrocortisone* Topical) 2.5%-28.3 Gm Cream..g., 1 APPLIC TOP BID, #1 TUB Prov:RAEGAN KRUEGER PA-C 06/30/18 Prednisone* (Prednisone*) 20 Mg Tab, 40 MG PO DAILY for 4 Days, TAB Prov:BOBBY GARZA PA-C 01/23/18 Diphenhydramine Hcl* (Benadryl*) 25 Mg Cap, 25 MG PO Q6, #30 CAP Prov:BOBBY GARZA PA-C 01/23/18 Albuterol Sulfate* (Ventolin HFA*) 18 Gm Hfa.aer.ad, 2 PUFF INHALATION Q4H, #1 INHALER Prov:RAEGAN KRUEGER PA-C 01/15/18 Naproxen* (Naprosyn*) 500 Mg Tablet, 500 MG PO BID PRN for PAIN AND/OR INFLAMMATION, #30 TAB Prov:RAEGAN KRUEGER PA-C 01/15/18 Cyclobenzaprine Hcl* (Cyclobenzaprine Hcl*) 10 Mg Tablet, 10 MG PO TID, #15 TAB Prov:RAEGAN KRUEGER PA-C 01/15/18 Fluticasone Propionate (Flonase Allergy Relief) 9.9 Ml [place].susp, 1 SPRAY NASAL DAILY, #1 BOTTLE TO EACH NOSTRIL Prov:JOSE JUAN BANERJEE DIRECTOR OF RESERVATIONS 11/15/17 Ferrous Sulfate* (Ferrous Sulfate*) 325 Mg Tabec, 325 MG PO BID, #20 TAB Prov:DERRELL LARKIN DIRECTOR OF RESERVATIONS 08/30/17 Ibuprofen* (Motrin*) 600 Mg Tab, 600 MG PO Q6, #30 TAB Prov:BOBBY GARZA PA-C 08/21/17 Sulfamethoxazole/Trimethoprim* (Bactrim Ds* Tablet) 1 Each Tablet, 1 TAB PO BID, #10 TAB Prov:BOBBY GARZA PA-C 08/21/17 Cephalexin* (Keflex*) 500 Mg Capsule, 500 MG PO QID for 5 Days, CAP Prov:BOBBY GARZA PA-C 08/21/17 Ondansetron (Ondansetron Odt) 4 Mg Tab.rapdis, 4 MG PO Q6H PRN for NAUSEA AND/OR VOMITING, #20 TAB Prov:ABRAHAM DOSHI PA-C 06/10/17 Meclizine Hcl* (Meclizine Hcl*) 25 Mg Tablet, 25 MG PO Q8H PRN for DIZZINESS, #30 TAB Prov:ABRAHAM DOSHI KADEN 06/10/17 Permethrin* (Elimite*) 5% Cr, 1 APPLIC TOP ONCE, #60 TUB Prov:ABRAHAM DOSHI KADEN 08/15/15 Allergies Allergies: Coded Allergies: No Known Allergy (Unverified , 12/23/16) PMhx/Soc Medical and Surgical Hx: pt denies Surgical Hx History of Surgery: No Anesthesia Reaction: No Hx Neurological Disorder: No Hx Respiratory Disorders: Yes (ASTHMA) Hx Cardiac Disorders: No Hx Psychiatric Problems: No Hx Miscellaneous Medical Probl: No Hx Alcohol Use: No Hx Substance Use: No Hx Tobacco Use: No Smoking Status: Never smoker FmHx Family History: No diabetes, No coronary disease Physical Exam Vitals Vital Signs Date Temp Pulse Resp B/P (MAP) Pulse Ox O2 O2 Flow FiO2 Time Delivery Rate 03/21/19 96 18 122/82 98 Room Air 15:36 (95) 03/21/19 97.9 115 18 139/95 97 13:38 (110) Physical Exam Const: No acute distress Head: Atraumatic Eyes: Normal Conjunctiva ENT: Normal External Ears, Nose and Mouth. Neck: Full range of motion. No meningismus. Resp: Clear to auscultation bilaterally Cardio: Regular rate and rhythm, no murmurs Abd: Soft, non tender, non distended. Normal bowel sounds Skin: Erythematous plaque on the occipital scalp area with moderate desquamation, otherwise, no petechiae or rashes Back: No midline or flank tenderness Ext: No cyanosis, or edema Neur: Awake and alert Psych: Normal Mood and Affect Procedures/MDM Vital signs stable, Differential diagnosis include but not limited to: Heat rash, contact dermatitis, viral exanthema, seborrheic dermatitis, scabies, acute allergic reaction, medication side effect. low suspicion for systemic infectious process, angioedema, anaphylactic shock. Physical examination and clinical presentation consistent most likely with s eborrheic dermatitis, the patient has history of asthma and is requesting a prescription for an inhaler. Results and clinical impression discussed with the patient who agree with management. The patient is stable to be treated outpatient and will be disch arged home with a Rx for topical mild potency steroids, some side effects of prescribed medications (skin atrophy, nausea, vomiting, diarrhea, interactions with other medications) were reviewed. The patient needs a follow up with the primary care provider in the next 48h. If symptoms persist, worsen or new symptoms develop, then patient should return to the ED immediately. Instructions explained and given directly by me with acknowledgment and demonstrated understanding. Disclaimer: Inadvertent spelling and grammatical errors are likely due to EHR/dictation software use and do not reflect on the overall quality of patient care. Also, please note that the electronic time recorded on this note does not necessarily reflect the actual time of the patient encounter. Departure Diagnosis: Primary Impression: Seborrheic dermatitis of scalp Additional Impression: Cough Condition: Stable Additional Instructions: Thank you very much for allowing us to participate in your care. Your health and safety is our top priority at [facility]. The evaluation in the emergency department has been done to rule out an acute emergency, therefore, chronic conditions like malignancy or other diseases have not been evaluated; therefore, you need to follow up with a primary care provider in the next 48h. If symptoms persist, worsen or new symptoms develop, then patient should return to the ED immediately. Call your primary care doctor TOMORROW for an appointment during the next 2-4 days and bring all the information provided. Have prescriptions filled and follow precisely the directions on the label. If the symptoms get worse and your provider is unavailable, return to the Emergency Department immediately. JASSON RODGERS MD Mar 21, 2019 15:17
[2019-03-21] MEDS ORDERED: TR1B60 TOP (15:18)
[2019-03-21] MEDS ORDERED: ALBU8.5H8 INH (15:19)
[2019-03-21] MEDS ORDERED: ACET325T33 PO (15:19)
[2019-03-21 15:36] VITALS: BP 122/82; PULSE 96; RESP 18
== END 2019-03-21 15:37 | disposition home or self-care (01) ==
LOC: FTE 12:38
DX: L21.9 Seborrheic dermatitis, unspecified (principal); R05 Cough; J45.909 Unspecified asthma, uncomplicated; Z76.0 Encounter for issue of repeat prescription
CPT/HCPCS: 99283

== ENCOUNTER 2019-04-04 20:37 | Emergency (ER) | payer SELFPAY ==
[~2019-04-04] VITALS: Ht 157.5 cm; Wt 60.9 kg
[~2019-04-04 20:37] MED LIST changes: +ACET325T33 PO; +ALBU8.5H8 INH; +TR1B60 TOP
[2019-04-04 20:53] VITALS: BP 132/79; PULSE 124; RESP 20; Ht 157.5 cm; Wt 60.9 kg
== END 2019-04-04 22:53 | disposition left against medical advice (07) ==
LOC: FTE 20:37
DX: Z53.21 Procedure and treatment not carried out due to patient leaving prior to being seen by health care provider (principal)

== ENCOUNTER 2019-06-23 04:36 | Emergency (ER) | payer OTHER ==
[~2019-06-23] VITALS: Ht 157.5 cm; Wt 61.0 kg
[~2019-06-23 04:36] MED LIST changes: +LORA-441 PO
[2019-06-23 04:38] VITALS: BP 147/109; PULSE 112; RESP 19; Ht 157.5 cm; Wt 61.0 kg
--- NOTE | 2019-06-23 06:13 | ERD ---
ER Documentation Chief Complaint Chief Complaint JOINT PAIN WITH FEVER X2DAYS HPI 33-year-old female presents emergency department complaining of intermittent body aches and fever and chills and mild sore throat. She also reports nausea and vomiting. She took [id number] medication with some relief. She kaila es any diarrhea, abdominal pain, or other symptoms currently. Patient does admit to using methamphetamine just prior to arrival. ROS All systems reviewed and are negative except as per history of present illness. Medications Home Meds Active Scripts Ibuprofen* (Motrin*) 600 Mg Tab, 600 MG PO Q6, #30 TAB Prov:RAEGAN KRUEGER PA-C 06/23/19 Acetaminophen* (Tylenol*) 325 Mg Tablet, 2 TAB PO Q6 PRN for PAIN AND OR ELEVATED TEMP, #20 TAB Prov:JASSON RODGERS MD 03/21/19 Albuterol Sulfate* (Proair HFA*) 8.5 Gm Hfa.aer.ad, 2 PUFF INH Q4H PRN for WHEEZING AND SOB, #1 INHALER Prov:JASSON RODGERS MD 03/21/19 Triamcinolone Acetonide (Triamcinolone Acetonide) 0.1% - 60 Ml Lotion, 1 APPLIC TOP BID for 7 Days, #1 BOTTLE Prov:JASSON RODGERS MD 03/21/19 Hydrocortisone* Topical (Hydrocortisone* Topical) 2.5%-28.3 Gm Cream..g., 1 APPLIC TOP BID for 7 Days, #1 TUB Prov:MADELINE FRAZIER MD 03/11/19 Diphenhydramine Hcl* (Benadryl*) 25 Mg Cap, 25 MG PO Q6, #20 CAP Prov:MADELINE FRAZIER MD 03/11/19 Ibuprofen* (Motrin*) 600 Mg Tab, 600 MG PO Q6H PRN for PAIN AND OR ELEVATED TEMP, #30 TAB Prov:PLACIDO YOUSIF 10/28/18 Albuterol Sulfate* (Ventolin HFA*) 18 Gm Hfa.aer.ad, 2 PUFF INHALATION Q4H, #1 INHALER Prov:RAEGAN KRUEGER PA-C 08/05/18 Hydrocortisone* Topical (Hydrocortisone* Topical) 2.5%-28.3 Gm Cream..g., 1 APPLIC TOP BID, #1 TUB Prov:RAEGAN KRUEGER PA-C 08/05/18 Hydrocortisone* Topical (Hydrocortisone* Topical) 2.5%-28.3 Gm Cream..g., 1 APPLIC TOP BID, #1 TUB Prov:RAEGAN KRUEGER PA-C 06/30/18 Prednisone* (Prednisone*) 20 Mg Tab, 40 MG PO DAILY for 4 Days, TAB Prov:BOBBY GARZA PA-C 01/23/18 Diphenhydramine Hcl* (Benadryl*) 25 Mg Cap, 25 MG PO Q6, #30 CAP Prov:BOBBY GARZA PA-C 01/23/18 Albuterol Sulfate* (Ventolin HFA*) 18 Gm Hfa.aer.ad, 2 PUFF INHALATION Q4H, #1 INHALER Prov:RAEGAN KRUEGER PA-C 01/15/18 Naproxen* (Naprosyn*) 500 Mg Tablet, 500 MG PO BID PRN for PAIN AND/OR INFLAMMATION, #30 TAB Prov:RAEGAN KRUEGER PA-C 01/15/18 Cyclobenzaprine Hcl* (Cyclobenzaprine Hcl*) 10 Mg Tablet, 10 MG PO TID, #15 TAB Prov:RAEGAN KRUEGER PA-C 01/15/18 Fluticasone Propionate (Flonase Allergy Relief) 9.9 Ml [place].susp, 1 SPRAY NASAL DAILY, #1 BOTTLE TO EACH NOSTRIL Prov:JOSE JUAN BANERJEE SUPERVISOR TESTING 11/15/17 Ferrous Sulfate* (Ferrous Sulfate*) 325 Mg Tabec, 325 MG PO BID, #20 TAB Prov:DERRELL LARKIN SUPERVISOR TESTING 08/30/17 Ibuprofen* (Motrin*) 600 Mg Tab, 600 MG PO Q6, #30 TAB Prov:BOBBY GARZA PA-C 08/21/17 Sulfamethoxazole/Trimethoprim* (Bactrim Ds* Tablet) 1 Each Tablet, 1 TAB PO BID, #10 TAB Prov:BOBBY GARZA PA-C 08/21/17 Cephalexin* (Keflex*) 500 Mg Capsule, 500 MG PO QID for 5 Days, CAP Prov:BOBBY GARZA PA-C 08/21/17 Ondansetron (Ondansetron Odt) 4 Mg Tab.rapdis, 4 MG PO Q6H PRN for NAUSEA AND/OR VOMITING, #20 TAB Prov:ABRAHAM DOSHI PA-C 06/10/17 Meclizine Hcl* (Meclizine Hcl*) 25 Mg Tablet, 25 MG PO Q8H PRN for DIZZINESS, #30 TAB Prov:ABRAHAM DOSHI PA-C 06/10/17 Permethrin* (Elimite*) 5% Cr, 1 APPLIC TOP ONCE, #60 TUB Prov:ABRAHAM DOSHI PA-C 08/15/15 Allergies Allergies: Coded Allergies: No Known Allergy (Unverified , 12/23/16) PMhx/Soc Medical and Surgical Hx: pt denies Medical Hx, pt denies Surgical Hx History of Surgery: No Anesthesia Reaction: No Hx Neurological Disorder: No Hx Respiratory Disorders: Yes (ASTHMA) Hx Cardiac Disorders: No Hx Psychiatric Problems: No Hx Miscellaneous Medical Probl: No Hx Alcohol Use: No Hx Substance Use: No Hx Tobacco Use: No Smoking Status: Unknown if ever smoked FmHx Family History: No diabetes Physical Exam Vitals Vital Signs Date Temp Pulse Resp B/P (MAP) Pulse Ox O2 O2 Flow FiO2 Time Delivery Rate 06/23/19 98.8 112 19 147/109 98 04:38 (122) Physical Exam Const: No acute distress Head: Atraumatic Eyes: Normal Conjunctiva ENT: Normal External Ears, Nose and Mouth. Neck: Full range of motion. No meningismus. Resp: Clear to auscultation bilaterally Cardio: Regular rate and rhythm, no murmurs Abd: Soft, non tender, non distended. Normal bowel sounds. No rebound tenderness or guarding. No McBurney's point tenderness. Skin: No petechiae or rashes Back: No midline or flank tenderness Ext: No cyanosis, or edema Neur: Awake and alert Psych: Normal Mood and Affect Procedures/MDM 33-year-old female presenting to the emergency department complaining of intermittent body aches and sore throat and nausea and vomiting. She is nontoxic and well-appearing. She has slight tachycardia at 112, however her methamphetamine use just prior to arrival can explain this. Much lower susp icion for cardiac etiology. The patient's clinical presentation is very consistent with an acute viral syndrome. The patient does not exhibit any clinical signs or symptoms concerning for serious bacterial infection or systemic illness. Based on history and clinical exam findings the patient does not appear to have evidence of pneumonia, strep pharyngitis, urinary tract infection, bacteremia, sepsis, or meningitis. For these reasons I do not believe it is necessary to obtain laboratory testing or diagnostic imaging. I believe it would be appropriate for symptom control, and close outpatient primary care follow-up. Based on patient's history of present illness and physical examination the decision was made to discharge. There is no evidence of life threatening injuries or illnesses at this time. On re-examination, patient resting in no distress, stable vital signs, reports feeling better and safe for discharge with outpatient follow up with PMD in 1-2 days. Patient given return precautions. Departure Diagnosis: Primary Impression: Influenza-like symptoms Condition: Fair Patient Instructions: Influenza (Adult) Referrals: [facility] YOU HAVE RECEIVED A MEDICAL SCREENING EXAM AND THE RESULTS INDICATE THAT YOU DO NOT HAVE A CONDITION THAT REQUIRES URGENT TREATMENT IN THE EMERGENCY DEPARTMENT. FURTHER EVALUATION AND TREATMENT OF YOUR CONDITION CAN WAIT UNTIL YOU ARE SEEN IN YOUR DOCTORS OFFICE WITHIN THE NEXT 1-2 DAYS. IT IS YOUR RESPONSIBILITY TO MAKE AN APPOINTMENT FOR FOLOW-UP CARE. IF YOU HAVE A PRIMARY DOCTOR --you should call your primary doctor and schedule an appointment IF YOU DO NOT HAVE A PRIMARY DOCTOR YOU CAN CALL OUR PHYSICIAN REFERRAL HOTLINE AT IF YOU CAN NOT AFFORD TO SEE A PHYSICIAN YOU CAN CHOSE FROM THE FOLLOWING [facility] [address] [facility] [address] [facility] [facility] [address] [facility] [address] [facility] [address] [facility]. [facility]. [address] Additional Instructions: Call your primary care doctor TOMORROW for an appointment during the next 1-2 days.See the doctor sooner or return here if your condition worsens before your appointment time. RAEGAN KRUEGER PA-C Jun 23, 2019 06:13
== END 2019-06-23 05:32 | disposition home or self-care (01) ==
LOC: FTE 04:36
DX: M25.50 Pain in unspecified joint (principal); J02.9 Acute pharyngitis, unspecified; R11.2 Nausea with vomiting, unspecified; J45.909 Unspecified asthma, uncomplicated
CPT/HCPCS: 99282

== ENCOUNTER 2019-07-14 18:08 | Emergency (ER) | payer OTHER ==
[~2019-07-14] VITALS: Ht 157.5 cm; Wt 56.7 kg
[2019-07-14 18:20] VITALS: BP 131/94; PULSE 107; RESP 20; Ht 157.5 cm; Wt 56.7 kg
--- NOTE | 2019-07-14 19:20 | ERD ---
ER Documentation Chief Complaint Chief Complaint "feeling weird" s/p meth use, seeing colors, no SI/HI/hallucinations HPI 33-year-old female with no reported past medical or surgical history, history of drug abuse who presents with complaint of weird feeling, seeing colors after methamphetamine use. Patient states she smoked crystal meth earlier today and since then has had these symptoms. She otherwise denies chest pain, shortness of breath, dyspnea, headache, dizziness, nausea, vomiting, diarrhea, abdominal pain, any other concerning symptoms. At time examination patient appeared anxious but otherwise with stable vital signs and no signs of acute distress. ROS All systems reviewed and are negative except as per history of present illness. Medications Home Meds Active Scripts Lorazepam* (Ativan*) 0.5 Mg Tablet, 0.5 MG PO Q8, #10 TAB Prov:JAMILA KANG PA-C 07/14/19 Ibuprofen* (Motrin*) 600 Mg Tab, 600 MG PO Q6, #30 TAB Prov:RAEGAN KRUEGER PA-C 06/23/19 Acetaminophen* (Tylenol*) 325 Mg Tablet, 2 TAB PO Q6 PRN for PAIN AND OR ELEVATED TEMP, #20 TAB Prov:JASSON RODGERS MD 03/21/19 Albuterol Sulfate* (Proair HFA*) 8.5 Gm Hfa.aer.ad, 2 PUFF INH Q4H PRN for WHEEZING AND SOB, #1 INHALER Prov:JASSON RODGERS MD 03/21/19 Triamcinolone Acetonide (Triamcinolone Acetonide) 0.1% - 60 Ml Lotion, 1 APPLIC TOP BID for 7 Days, #1 BOTTLE Prov:JASSON RODGERS MD 03/21/19 Hydrocortisone* Topical (Hydrocortisone* Topical) 2.5%-28.3 Gm Cream..g., 1 APPLIC TOP BID for 7 Days, #1 TUB Prov:MADELINE FRAZIER MD 03/11/19 Diphenhydramine Hcl* (Benadryl*) 25 Mg Cap, 25 MG PO Q6, #20 CAP Prov:MADELINE FRAZIER MD 03/11/19 Ibuprofen* (Motrin*) 600 Mg Tab, 600 MG PO Q6H PRN for PAIN AND OR ELEVATED TEMP, #30 TAB Prov:PASILABAN,KLAR F 10/28/18 Albuterol Sulfate* (Ventolin HFA*) 18 Gm Hfa.aer.ad, 2 PUFF INHALATION Q4H, #1 INHALER Prov:RAEGAN KRUEGER PA-C 08/05/18 Hydrocortisone* Topical (Hydrocortisone* Topical) 2.5%-28.3 Gm Cream..g., 1 APPLIC TOP BID, #1 TUB Prov:RAEGAN KRUEGER PA-C 08/05/18 Hydrocortisone* Topical (Hydrocortisone* Topical) 2.5%-28.3 Gm Cream..g., 1 APPLIC TOP BID, #1 TUB Prov:RAEGAN KRUEGER PA-C 06/30/18 Prednisone* (Prednisone*) 20 Mg Tab, 40 MG PO DAILY for 4 Days, TAB Prov:BOBBY GARZA PA-C 01/23/18 Diphenhydramine Hcl* (Benadryl*) 25 Mg Cap, 25 MG PO Q6, #30 CAP Prov:BOBBY GARZA PA-C 01/23/18 Albuterol Sulfate* (Ventolin HFA*) 18 Gm Hfa.aer.ad, 2 PUFF INHALATION Q4H, #1 INHALER Prov:RAEGAN KRUEGER PA-C 01/15/18 Naproxen* (Naprosyn*) 500 Mg Tablet, 500 MG PO BID PRN for PAIN AND/OR INFLAMMATION, #30 TAB Prov:RAEGAN KRUEGER PA-C 01/15/18 Cyclobenzaprine Hcl* (Cyclobenzaprine Hcl*) 10 Mg Tablet, 10 MG PO TID, #15 TAB Prov:RAEGAN KRUEGER PA-C 18 Fluticasone Propionate (Flonase Allergy Relief) 9.9 Ml [place].susp, 1 SPRAY NASAL DAILY, #1 BOTTLE TO EACH NOSTRIL Prov:JOSE JUAN BANERJEE PRESSURE DISPATCHER 11/15/17 Ferrous Sulfate* (Ferrous Sulfate*) 325 Mg Tabec, 325 MG PO BID, #20 TAB Prov:DERRELL LARKIN NP 08/30/17 Ibuprofen* (Motrin*) 600 Mg Tab, 600 MG PO Q6, #30 TAB Prov:BOBBY GARZA PA-C 08/21/17 Sulfamethoxazole/Trimethoprim* (Bactrim Ds* Tablet) 1 Each Tablet, 1 TAB PO BID, #10 TAB Prov:BOBBY GARZA PA-C 08/21/17 Cephalexin* (Keflex*) 500 Mg Capsule, 500 MG PO QID for 5 Days, CAP Prov:BOBBY GARZA PA-C 08/21/17 Ondansetron (Ondansetron Odt) 4 Mg Tab.rapdis, 4 MG PO Q6H PRN for NAUSEA AND/OR VOMITING, #20 TAB Prov:ABRAHAM DOSHI PA-C 06/10/17 Meclizine Hcl* (Meclizine Hcl*) 25 Mg Tablet, 25 MG PO Q8H PRN for DIZZINESS, #30 TAB Prov:ABRAHAM DOSHI PA-C 06/10/17 Permethrin* (Elimite*) 5% Cr, 1 APPLIC TOP ONCE, #60 TUB Prov:ABRAHAM DOSHI PA-C 08/15/15 Allergies Allergies: Coded Allergies: No Known Allergy (Unverified , 12/23/16) PMhx/Soc Medical and Surgical Hx: pt denies Surgical Hx History of Surgery: No Anesthesia Reaction: No Hx Neurological Disorder: No Hx Respiratory Disorders: Yes (ASTHMA) Hx Cardiac Disorders: No Hx Psychiatric Problems: No Hx Miscellaneous Medical Probl: No Hx Alcohol Use: No Hx Substance Use: No Hx Tobacco Use: No Smoking Status: Never smoker FmHx Family History: No diabetes, No coronary disease, No other Physical Exam Vitals Vital Signs Date Temp Pulse Resp B/P (MAP) Pulse Ox O2 O2 Flow FiO2 Time Delivery Rate 07/14/19 98.3 107 20 131/94 99 18:20 (106) Physical Exam I have reviewed the triage vital signs. Const: Well nourished, well developed, appears stated age, anxious Eyes: PERRL, no conjunctival injection HENT: NCAT, Neck supple without meningismus CV: RRR, Warm, well-perfused extremities RESP: CTAB, Unlabored respiratory effort GI: soft, non-tender, non-distended, no masses MSK: No gross deformities appreciated Skin: Warm, dry. No rashes Neuro: grossly non focal Psych: Appropriate mood and affect. Results 24 hrs Current Medications Medications Dose Sig/Bartolo Start Time Status Last (Trade) Ordered Route PRN Stop Time Admin Dose Reason Admin Lorazepam 0.5 mg ONCE ONCE 07/14/19 (Ativan) PO 19:30 07/14/19 19:31 Procedures/MDM 33-year-old female presents with withdrawal type symptoms after smoking crystal meth. I have low suspicion for any acute process such as ACS, infection, acute withdrawal warranting hospitalization. Patient symptoms improved with Ativan. Patient counseled on drugs abuse cessation. Will discharge with short course of Ativan. Strict return precautions explained in detail. EKG reviewed by myself and attending physician, with sinus tachycardia, no overt evidence of contiguous ST segment elevations, low suspicion for acute VA. Low suspicion for WPW, long QT, HOCM, Brugada after EKG review. DISPOSITION PLAN: We discussed follow up with the patient's primary care doctor within 24 to 48 hours. Patient counseled regarding my diagnostic impression and care plan. Prior to discharge all questions answered. Pt agrees with treatment plan and understands strict return precautions. Precautionary instructions provided including instructions to return to the ER if not improving or for any worsening or changing symptoms or concerns. Disclaimer: Inadvertent spelling and grammatical errors are likely due to EHR/dictation software use and do not reflect on the overall quality of patient care. Also, please note that the electronic time recorded on this note does not necessarily reflect the actual time of the patient encounter. Departure Diagnosis: Primary Impression: Drug abuse Condition: Stable Patient Instructions: Understanding Methamphetamine Abuse and Addiction, Treating Drug Abuse and Addiction Referrals: [facility] YOU HAVE RECEIVED A MEDICAL SCREENING EXAM AND THE RESULTS INDICATE THAT YOU DO NOT HAVE A CONDITION THAT REQUIRES URGENT TREATMENT IN THE EMERGENCY DEPARTMENT. FURTHER EVALUATION AND TREATMENT OF YOUR CONDITION CAN WAIT UNTIL YOU ARE SEEN IN YOUR DOCTORS OFFICE WITHIN THE NEXT 1-2 DAYS. IT IS YOUR RESPONSIBILITY TO MAKE AN APPOINTMENT FOR FOLOW-UP CARE. IF YOU HAVE A PRIMARY DOCTOR --you should call your primary doctor and schedule an appointment IF YOU DO NOT HAVE A PRIMARY DOCTOR YOU CAN CALL OUR PHYSICIAN REFERRAL HOTLINE AT IF YOU CAN NOT AFFORD TO SEE A PHYSICIAN YOU CAN CHOSE FROM THE FOLLOWING [facility] [address] [facility] [address] [facility] [address] [facility] [address] [facility] [address] [facility]. [facility]. [address] Additional Instructions: Call your primary care doctor TOMORROW for an appointment during the next 2-3 days.See the doctor sooner or return here if your condition worsens before your appointment time. JAMILA KANG PA-C Jul 14, 2019 19:20
[2019-07-14] MEDS ORDERED: LORAZEPAM 0.5 MG TAB PO ONE (19:30)
--- NOTE | 2019-07-14 20:15 | RADRPT ---
Vent Rate: 108 bpm RR Interval: 556 msec AR Interval: 122 msec QRS Duration: 79 msec QT Interval: 337 msec QTC Interval: 452 msec P-R-T [place]: 56 - 34 - 46 degrees Sinus tachycardia...rate> 99 Electronically Signed By: Allen Mc
== END 2019-07-14 19:30 | disposition home or self-care (01) ==
LOC: FTE 18:08
DX: F15.10 Other stimulant abuse, uncomplicated (principal); J45.909 Unspecified asthma, uncomplicated
CPT/HCPCS: 93005; Z7502; Z7610

== ENCOUNTER 2019-08-03 08:18 | Emergency (ER) | payer OTHER ==
[~2019-08-03] VITALS: Ht 157.5 cm; Wt 46.0 kg
[~2019-08-03 08:18] MED LIST changes: +[UNRECOGNIZED DRUG - CODE] TP
[2019-08-03 08:24] VITALS: BP 139/99; PULSE 104; RESP 16; Ht 157.5 cm; Wt 46.0 kg
== END 2019-08-03 09:30 | disposition home or self-care (01) ==
LOC: FTE 08:18
DX: L55.9 Sunburn, unspecified (principal); J45.909 Unspecified asthma, uncomplicated; R52 Pain, unspecified
CPT/HCPCS: 99282

== ENCOUNTER 2019-08-08 03:50 | Emergency (ER) | payer OTHER ==
[~2019-08-08] VITALS: Ht 157.5 cm; Wt 55.7 kg
[2019-08-08 03:55] VITALS: BP 135/75; PULSE 76; RESP 17; Ht 157.5 cm; Wt 55.7 kg
[2019-08-08] MEDS ORDERED: KETOROLAC 30 MG INJ IM STA (04:55)
[2019-08-08] MEDS ORDERED: DEXAMETHASONE 10 MG/ML 1 ML INJ IM ONE (05:00)
== END 2019-08-08 05:30 | disposition home or self-care (01) ==
LOC: FTE 03:50
DX: M54.6 Pain in thoracic spine (principal); J45.909 Unspecified asthma, uncomplicated; F17.210 Nicotine dependence, cigarettes, uncomplicated
CPT/HCPCS: 81001; 81025; 96372; J1100; J1885; Z7502

== ENCOUNTER 2019-09-27 03:45 | Emergency (ER) | payer OTHER ==
[~2019-09-27] VITALS: Ht 157.5 cm; Wt 59.4 kg
[2019-09-27 03:51] VITALS: BP 140/85; PULSE 69; RESP 20; Ht 157.5 cm; Wt 59.4 kg
== END 2019-09-27 05:10 | disposition home or self-care (01) ==
LOC: FTE 03:45
DX: Z76.0 Encounter for issue of repeat prescription (principal); J45.909 Unspecified asthma, uncomplicated; F17.210 Nicotine dependence, cigarettes, uncomplicated
CPT/HCPCS: 99281